=== PATIENT | male | born 1965 | race Caucasian/White ===

== ENCOUNTER 2019-10-19 21:00 | Emergency (ER) | payer OTHER ==
[~2019-10-19] VITALS: Ht 180.3 cm; Wt 111.6 kg
[2019-10-19 21:05] VITALS: BP_SYST 140
--- NOTE | 2019-10-19 21:05 | NUR ---
Patient to ER bed 06 to gown for evaluation. Side rails up. Report given to CADENCE.
--- NOTE | 2019-10-19 21:08 | NUR ---
Dr. Choudhary bedside for pt eval
--- NOTE | 2019-10-19 21:20 | NUR ---
Pt BIB family to ED C/O SUDDEN ONSET OF FACIAL WEAKNESS/NUMBNESS THAT STARTED TODAY X 9 HOURS. VSS no s/s of acute distress Resting on gurney rails up
[2019-10-19 21:46] VITALS: BP_SYST 140
--- NOTE | 2019-10-19 21:46 | NUR ---
Patient given written and verbal discharge instructions and verbalizes understanding. ER MD discussed with patient the results and treatment provided. Patient in stable condition. ID arm band removed. Rx of Prednisone and Artificial tears given. Patient educated on pain management and to follow up with PMD. Pain Scale 0/10 Opportunity for questions provided and answered. Medication side effect fact sheet provided.
== END 2019-10-19 21:46 | disposition home or self-care (01) ==
LOC: SED 21:00
DX: G51.0 Bell's palsy (principal); I10 Essential (primary) hypertension; E11.9 Type 2 diabetes mellitus without complications
CPT/HCPCS: 99283